=== PATIENT | male | born 1930 | race Caucasian/White ===

== ENCOUNTER 2016-12-27 10:55 | Emergency (ER) | payer MEDICARE, OTHER ==
[~2016-12-27] VITALS: Ht 167.6 cm; Wt 83.5 kg
[~2016-12-27 10:55] MED LIST: CLOPIDOGREL75 MG PO; FLUTICASONE PRO16 GM NAS; GLUCOSAMINE &1 EAC1 PO; HYDROCODON-ACE1 EA10 PO; PERCOCET 5-3251 EACH PO; RANITIDINE HCL150 MG PO; SIMVASTATIN80 MG PO; SPIRONOLACTONE25 MG PO; VITAMIN B COMP1 EACH PO; VITAMIN D2000 UNIT PO
[2016-12-27] MEDS ORDERED: CIPRO500 MG PO (13:25)
--- NOTE | 2016-12-27 20:40 | EKG ---
[facility] [address] [facility] [place] [address] Signed Ventricular-paced rhythm with frequent premature ventricular complexes Abnormal ECG No previous ECGs available Confirmed by KEVEN CRAIN MD ([id number]) on 12/27/2016 8:40:37 PM Electronically Signed By: KEVEN CRAIN MD 12/27/162039 PATIENT NAME: DOREEN MOREL DASHA Electrocardiogram DATE OF : 28 PHYSICIAN: KEVEN CRAIN MD REPORT #: [id number] REPORT IS CONFIDENTIAL AND NOT TO BE RELEASED WITHOUT AUTHORIZATION
== END 2016-12-27 13:42 | disposition home or self-care (01) ==
LOC: ED 10:55
DX: N39.0 Urinary tract infection, site not specified (principal); R64 Cachexia; I10 Essential (primary) hypertension; Z95.0 Presence of cardiac pacemaker; Z90.49 Acquired absence of other specified parts of digestive tract; Z86.73 Personal history of transient ischemic attack (TIA), and cerebral infarction without residual deficits; Z88.0 Allergy status to penicillin; Z88.1 Allergy status to other antibiotic agents; Z88.2 Allergy status to sulfonamides; Z79.899 Other long term (current) drug therapy; Z79.84 Long term (current) use of oral hypoglycemic drugs
CPT/HCPCS: 71010; 80053; 81001; 83735; 84484; 85025; 87077; 87088; 87186; 93005; 93010; 99284

== ENCOUNTER 2017-01-06 13:58 | Emergency (ER) | payer MEDICARE, OTHER ==
[~2017-01-06] VITALS: Ht 167.6 cm; Wt 79.4 kg
[~2017-01-06 13:58] MED LIST changes: +CIPRO500 MG PO
[2017-01-06] MEDS ORDERED: MACRODANTIN100 MG PO (16:20)
== END 2017-01-06 16:52 | disposition home or self-care (01) ==
LOC: ED 13:58
DX: N45.1 Epididymitis (principal); N50.89 Other specified disorders of the male genital organs; I10 Essential (primary) hypertension; Z86.73 Personal history of transient ischemic attack (TIA), and cerebral infarction without residual deficits; Z95.0 Presence of cardiac pacemaker; Z90.49 Acquired absence of other specified parts of digestive tract; Z88.0 Allergy status to penicillin; Z88.2 Allergy status to sulfonamides; Z88.8 Allergy status to other drugs, medicaments and biological substances; Z79.899 Other long term (current) drug therapy; Z79.891 Long term (current) use of opiate analgesic
CPT/HCPCS: 76870; 80053; 81001; 85025; 99284

== ENCOUNTER 2017-01-07 08:14 | Emergency (ER) | payer MEDICARE, OTHER ==
[~2017-01-07] VITALS: Ht 167.6 cm; Wt 81.7 kg
[~2017-01-07 08:14] MED LIST changes: +MACRODANTIN100 MG PO
== END 2017-01-07 10:40 | disposition home or self-care (01) ==
LOC: ED 08:14
DX: R13.10 Dysphagia, unspecified (principal); I10 Essential (primary) hypertension; Z86.73 Personal history of transient ischemic attack (TIA), and cerebral infarction without residual deficits; Z95.0 Presence of cardiac pacemaker; Z88.0 Allergy status to penicillin; Z88.2 Allergy status to sulfonamides; Z88.1 Allergy status to other antibiotic agents; Z79.899 Other long term (current) drug therapy
CPT/HCPCS: 71010; 99284